=== PATIENT | male | born 1995 ===

== ENCOUNTER 2017-09-29 20:23 | Emergency (ER) | payer OTHER ==
[~2017-09-29] VITALS: Ht 180.3 cm; Wt 77.1 kg
--- NOTE | 2017-09-29 20:45 | NUR ---
Dr Hernadez into eval patient
--- NOTE | 2017-09-29 21:47 | NUR ---
Patient discharged to home in stable conditon. Written and verbal after care instructions given. Patient verbalizes understanding of instructions.
== END 2017-09-29 21:48 | disposition home or self-care (01) ==
LOC: ER 20:29
DX: S93.501A Unspecified sprain of right great toe, initial encounter (principal); W22.8XXA Striking against or struck by other objects, initial encounter; Y93.66 Activity, soccer; Y92.89 Other specified places as the place of occurrence of the external cause; Y99.8 Other external cause status
CPT/HCPCS: 73660; A4663